=== PATIENT | male | born 1970 | race Caucasian/White ===

== ENCOUNTER 2017-07-03 11:01 | Emergency (ER) | payer BC ==
[~2017-07-03] VITALS: Ht 180.3 cm; Wt 74.8 kg
[~2017-07-03 11:01] MED LIST: EXCEDRIN MIGRA1 EACH PO; METHADONE HCL10 MG PO; NEURONTIN600 MG PO; ZANAFLEX PO
== END 2017-07-03 12:04 | disposition home or self-care (01) ==
LOC: CED 11:01 → CFTX 11:01
DX: G89.29 Other chronic pain (principal); M79.605 Pain in left leg; R03.0 Elevated blood-pressure reading, without diagnosis of hypertension; E11.40 Type 2 diabetes mellitus with diabetic neuropathy, unspecified; F32.9 Major depressive disorder, single episode, unspecified; F17.210 Nicotine dependence, cigarettes, uncomplicated; M19.90 Unspecified osteoarthritis, unspecified site
CPT/HCPCS: 96372; 99283; J1885